=== PATIENT | male | born 1975 | race Hispanic/Latino ===

== ENCOUNTER 2020-02-11 20:21 | Inpatient (IN) | payer OTHER ==
[~2020-02-11] VITALS: Ht 167.6 cm; Wt 92.5 kg
[2020-02-11] MEDS ORDERED: ACETAMINOPHEN EXTRA STRENGTH 500 MG TABLET ONE (20:59)
[2020-02-11 21:29] LABS: ABG BASE EXCESS -3.4 mmol/L (-2.0-3.0); ABG HCO3 19.9 mmol/L (21.0-28.0); ABG OXYGEN SATURATION 93.7 % (95.0-99.0); ABG PCO2 31 mmHg (35-48)
[2020-02-11 21:32] LABS: BASOPHILS % (AUTO) 0.2 % (0.0-5.0); HEMATOCRIT 43.5 % (42-54); LYMPHOCYTES % (AUTO) 19.1 % (21.0-51.0); MEAN CORPUSCULAR HEMOGLOBIN 31.4 pg (27.0-33.0); MEAN CORPUSCULAR HGB CONC 34.9 g/dL (32.0-36.0); MEAN CORPUSCULAR VOLUME 89.9 fL (79-99); MONOCYTES % (AUTO) 11.2 % (3.0-13.0); NEUTROPHILS % (AUTO) 68.5 % (40.0-77.0); PLATELET COUNT (AUTO) 180 K/uL (130-400); RED BLOOD CELL COUNT(AUTO) 4.84 MIL/uL (4.50-6.20); RED CELL DISTRIBUTION WIDTH 12.6 % (11.0-15.5); WHITE BLOOD COUNT (AUTO) 5.2 K/uL (4.8-10.8)
[2020-02-11 21:39] LABS: INR 0.92 (0.85-1.15); PARTIAL THROMBOPLASTIN TIME 32.5 SEC (26.3-35.5)
[2020-02-11 21:42] LABS: CREATININE 1.2 mg/dL (0.5-1.5); POTASSIUM 3.8 mmol/L (3.5-5.1)
[2020-02-11 21:48] LABS: ALBUMIN 3.6 g/dL (3.5-5.0); BILIRUBIN,TOTAL 0.5 mg/dL (0.2-1.0); TOTAL PROTEIN, SERUM 8.2 g/dL (6.0-8.3)
[2020-02-11 21:56] LABS: B-TYPE NATRIURETIC PEPTIDE < 5 pg/mL (0-100)
[2020-02-11] MEDS ORDERED: CEFTRIAXONE SODIUM 1 GM ONE (22:00)
[2020-02-11] MEDS ORDERED: AZITHROMYCIN 500MG+NS 250ML 250 ML IV ONE (22:00)
[2020-02-11] MEDS ORDERED: IBUPROFEN 600 MG TABLET ONE (22:01)
[2020-02-11] MEDS: SODIUM CHLORIDE 0.9% 1000ML 1,000 ML IV SCH (22:38)
[2020-02-11] MEDS: CEFTRIAXONE SODIUM 1 GM IV SCH (22:45)
[2020-02-11] MEDS ORDERED: LACTULOSE 20 GM/30 ML UDCUP PO PRN (22:45)
[2020-02-11] MEDS ORDERED: ERGOCALCIFEROL (VITAMIN D2) 50,000 UNIT CAPSULE PO ONE (22:45)
[2020-02-11] MEDS ORDERED: ONDANSETRON HCL 4 MG/2 ML VIAL IV PRN (22:45)
[2020-02-11] MEDS ORDERED: POTASSIUM CHLORIDE 10% ELIXIR 20 MEQ/15 ML UDCUP PO PRN (22:45)
[2020-02-11] MEDS ORDERED: BENZONATATE 100 MG CAPSULE PO PRN (22:45)
[2020-02-11] MEDS: AZITHROMYCIN 500MG+NS 250ML 250 ML IV SCH (22:45)
[2020-02-11] MEDS ORDERED: POTASSIUM CHLORIDE 20 MEQ ERTAB PO PRN (22:45)
[2020-02-11] MEDS ORDERED: LIDOCAINE HCL-MPF 1% 2ML VIAL IV PRN (22:45)
[2020-02-11] MEDS ORDERED: POTASSIUM CHLORIDE 20MEQ/100ML 100 ML IV PRN (22:45)
[2020-02-11] MEDS ORDERED: HYDRALAZINE HCL 20 MG/ML VIAL IV PRN (23:00)
[2020-02-11] MEDS ORDERED: DEXAMETHASONE SOD PHOSPHATE 10MG/ML 1ML VIAL ONE (23:13)
[2020-02-11 23:30] LABS: APPEARANCE,URINE Clear (CLEAR); BILIRUBIN,URINE Negative (NEGATIVE); COLOR,URINE Yellow (YELLOW); GLUCOSE, URINE (UA) >=1000 mg/dL (NEGATIVE); KETONES,URINE 40 mg/dL (NEGATIVE); LEUKOCYTE ESTERASE ,URINE Negative (NEGATIVE); NITRATE,URINE Negative (NEGATIVE); OCCULT BLOOD,URINE Negative (NEGATIVE); PROTEIN,URINE POS 2+ mg/dL (NEGATIVE)
[2020-02-11 23:55] LABS: BACTERIA,URINE None Seen /HPF (None Seen); RBC,URINE None Seen /HPF (0-1); SQUAMOUS EPITHELIAL CELL,UR Rare /HPF (0-2); WBC,URINE None Seen /HPF (0-1); YEAST,URINE BUDDING None Seen /HPF (None Seen)
[2020-02-12 04:38] LABS: ALANINE AMINOTRANSFERASE 18 U/L (12-78); ALBUMIN 3.1 g/dL (3.5-5.0); ASPARTATE AMINOTRANSFERASE 27 U/L (10-37); BILIRUBIN,TOTAL 0.4 mg/dL (0.2-1.0); CARBON DIOXIDE 21 mmol/L (21-32); CHLORIDE 101 mmol/L (101-111); CREATININE 1.1 mg/dL (0.5-1.5); GLOMERULAR FILTR. RATE CALC 78 mL/min (>60); GLUCOSE,RANDOM 267 mg/dL (70-105); LACTATE DEHYDROGENASE 225 U/L (81-234); POTASSIUM 4.7 mmol/L (3.5-5.1); SODIUM SERUM 134 mmol/L (136-145); TOTAL PROTEIN, SERUM 7.3 g/dL (6.0-8.3); UREA NITROGEN, BLOOD 19 mg/dL (7-18)
[2020-02-12 06:03] LABS: BASOPHILS % (AUTO) 0.2 % (0.0-5.0); HEMATOCRIT 40.2 % (42-54); LYMPHOCYTES % (AUTO) 15.5 % (21.0-51.0); MEAN CORPUSCULAR HEMOGLOBIN 31.2 pg (27.0-33.0); MEAN CORPUSCULAR HGB CONC 33.6 g/dL (32.0-36.0); MEAN CORPUSCULAR VOLUME 92.8 fL (79-99); MONOCYTES % (AUTO) 3.8 % (3.0-13.0); NEUTROPHILS % (AUTO) 79.2 % (40.0-77.0); PLATELET COUNT (AUTO) 160 K/uL (130-400); RED BLOOD CELL COUNT(AUTO) 4.33 MIL/uL (4.50-6.20); RED CELL DISTRIBUTION WIDTH 12.6 % (11.0-15.5); WHITE BLOOD COUNT (AUTO) 4.5 K/uL (4.8-10.8)
[2020-02-12] MEDS: INSULIN HUMULIN R 100 UNIT/ML 3ML SQ SCH ×4 (07:30→20:32)
[2020-02-12] MEDS ORDERED: DEXAMETHASONE SOD PHOSPHATE 10MG/ML 1ML VIAL ONE (07:56)
[2020-02-12] MEDS ORDERED: ZINC SULFATE 220 CAPSULE ONE (07:57)
[2020-02-12] MEDS ORDERED: HEPARIN SODIUM 5000UNIT/ML 1ML VIAL ONE (07:57)
[2020-02-12] MEDS ORDERED: ASCORBIC ACID 500 MG TAB ONE (07:57)
[2020-02-12] MEDS ORDERED: FAMOTIDINE 20MG TAB 20 MG TAB ONE (07:57)
[2020-02-12] MEDS: SODIUM CHLORIDE 0.9% 1000ML 1,000 ML IV SCH ×2 (08:38→21:06)
[2020-02-12] MEDS ORDERED: INSULIN HUMULIN R 100 UNIT/ML 3ML ONE ×2 (08:57→17:23)
[2020-02-12] MEDS: ASCORBIC ACID 500 MG TAB PO SCH (09:00)
[2020-02-12] MEDS: FAMOTIDINE 20MG TAB 20 MG TAB PO SCH ×2 (09:00→21:05)
[2020-02-12] MEDS: HEPARIN SODIUM 5000UNIT/ML 1ML VIAL SQ SCH ×3 (09:00→21:05)
[2020-02-12] MEDS: ZINC SULFATE 220 CAPSULE PO SCH (09:00)
[2020-02-12] MEDS: DEXAMETHASONE 4 MG TAB PO SCH (09:00)
--- NOTE | 2020-02-12 15:00 | NUR ---
JOSEPHINE NOTE/IA UNABLE TO MEET WITH PATIENT IN ROOM, NEXT OF KIN CALLED, GIORGI AVILA. PER SPOUSE, PATIENT LIVES WITH HER AND CHILDREN, REQUIRES SOME ASSISTANCE WITH ADLS, DISABLED, HAS USE OF WALKER, AND [facility] [place] AND FEELS SAFE FOR PATIENT TO RETURN HOME ONCE DISCHARGED. Addendum: 02/13/20 at 1017 by KIMBERLY RAYGOZA RN CM Amended: Links added.
[2020-02-12 18:39] VITALS: BP 133/81
[2020-02-12 19:35] VITALS: BP 123/75
--- NOTE | 2020-02-12 19:55 | NUR ---
contact and spoke with vincent charged nurse on 4th floor, explained to her pt didnt got his tray. she said am i going to the kitchen and cook for the pt, explained to her you are the charged nurse and just letting you know pt gaurang received her tray, told her no need to be philosophical, she is gonna look for food.
[2020-02-12] MEDS: CEFTRIAXONE SODIUM 1 GM IV SCH (21:50)
[2020-02-12] MEDS: AZITHROMYCIN 500MG+NS 250ML 250 ML IV SCH (21:50)
--- NOTE | 2020-02-13 00:26 | NUR ---
contact and spoke with alexis jacques, pt requesting something for sleep ordered trazadone 25 mg hs prn for insomnia, torb and confirmed.
[2020-02-13] MEDS ORDERED: TRAZODONE HCL 50 MG TAB PO SCH (00:30)
[2020-02-13] MEDS ORDERED: TRAZODONE HCL 50 MG TAB ONE (00:32)
[2020-02-13 00:36] VITALS: BP 125/90
[2020-02-13 03:49] VITALS: BP 90/56
[2020-02-13] MEDS: ACETAMINOPHEN 325 MG TAB PO PRN ×2 (04:41→20:37)
[2020-02-13] MEDS: GUAIFENESIN-DM 200/20 MG 10 ML PO PRN ×2 (04:41→20:38)
[2020-02-13] MEDS: SODIUM CHLORIDE 0.9% 1000ML 1,000 ML IV SCH ×3 (04:41→23:47)
[2020-02-13 05:04] LABS: BASOPHILS % (AUTO) 0.1 % (0.0-5.0); HEMATOCRIT 40.1 % (42-54); LYMPHOCYTES % (AUTO) 11.7 % (21.0-51.0); MEAN CORPUSCULAR HEMOGLOBIN 31.3 pg (27.0-33.0); MEAN CORPUSCULAR HGB CONC 34.7 g/dL (32.0-36.0); MEAN CORPUSCULAR VOLUME 90.3 fL (79-99); NEUTROPHILS % (AUTO) 80.5 % (40.0-77.0); PLATELET COUNT (AUTO) 195 K/uL (130-400); RED BLOOD CELL COUNT(AUTO) 4.44 MIL/uL (4.50-6.20); RED CELL DISTRIBUTION WIDTH 12.7 % (11.0-15.5)
[2020-02-13 05:47] LABS: BILIRUBIN,TOTAL 0.4 mg/dL (0.2-1.0); CREATININE 0.9 mg/dL (0.5-1.5); CRP QUANTITATIVE 38.4 mg/L (0.00-9.0); TOTAL PROTEIN, SERUM 7.2 g/dL (6.0-8.3)
[2020-02-13] MEDS: INSULIN HUMULIN R 100 UNIT/ML 3ML SQ SCH ×4 (06:04→20:49)
[2020-02-13 08:30] VITALS: BP 113/73
[2020-02-13] MEDS: DEXAMETHASONE 4 MG TAB PO SCH (09:07)
[2020-02-13] MEDS: ASCORBIC ACID 500 MG TAB PO SCH (09:08)
[2020-02-13] MEDS: ZINC SULFATE 220 CAPSULE PO SCH (09:08)
[2020-02-13] MEDS: FAMOTIDINE 20MG TAB 20 MG TAB PO SCH ×2 (09:08→20:36)
[2020-02-13] MEDS: HEPARIN SODIUM 5000UNIT/ML 1ML VIAL SQ SCH ×3 (09:09→20:40)
[2020-02-13 12:00] VITALS: BP 135/67
[2020-02-13] MEDS ORDERED: DEXA6TAB PO (14:56)
[2020-02-13 16:23] VITALS: BP 128/80
[2020-02-13 19:35] VITALS: BP 131/84
[2020-02-13] MEDS: CEFTRIAXONE SODIUM 1 GM IV SCH (23:46)
[2020-02-13] MEDS: AZITHROMYCIN 500MG+NS 250ML 250 ML IV SCH (23:47)
[2020-02-14 00:02] VITALS: BP 128/80
[2020-02-14 04:05] VITALS: BP 131/79
[2020-02-14 04:47] LABS: BASOPHILS % (AUTO) 0.1 % (0.0-5.0); HEMATOCRIT 40.8 % (42-54); LYMPHOCYTES % (AUTO) 8.5 % (21.0-51.0); MEAN CORPUSCULAR HEMOGLOBIN 30.6 pg (27.0-33.0); MEAN CORPUSCULAR HGB CONC 34.3 g/dL (32.0-36.0); MEAN CORPUSCULAR VOLUME 89.3 fL (79-99); MONOCYTES % (AUTO) 4.5 % (3.0-13.0); NEUTROPHILS % (AUTO) 85.8 % (40.0-77.0); PLATELET COUNT (AUTO) 230 K/uL (130-400); RED BLOOD CELL COUNT(AUTO) 4.57 MIL/uL (4.50-6.20); RED CELL DISTRIBUTION WIDTH 12.2 % (11.0-15.5); WHITE BLOOD COUNT (AUTO) 10.1 K/uL (4.8-10.8)
[2020-02-14 05:04] LABS: ALANINE AMINOTRANSFERASE 17 U/L (12-78); ALBUMIN 3.2 g/dL (3.5-5.0); ASPARTATE AMINOTRANSFERASE 16 U/L (10-37); BILIRUBIN,TOTAL 0.4 mg/dL (0.2-1.0); CARBON DIOXIDE 19 mmol/L (21-32); CHLORIDE 99 mmol/L (101-111); CREATININE 0.9 mg/dL (0.5-1.5); GLOMERULAR FILTR. RATE CALC 98 mL/min (>60); GLUCOSE,RANDOM 190 mg/dL (70-105); LACTATE DEHYDROGENASE 214 U/L (81-234); POTASSIUM 3.8 mmol/L (3.5-5.1); SODIUM SERUM 135 mmol/L (136-145); TOTAL PROTEIN, SERUM 7.8 g/dL (6.0-8.3); UREA NITROGEN, BLOOD 21 mg/dL (7-18)
[2020-02-14] MEDS: INSULIN HUMULIN R 100 UNIT/ML 3ML SQ SCH (06:15)
[2020-02-14] MEDS: GUAIFENESIN-DM 200/20 MG 10 ML PO PRN (06:17)
[2020-02-14] MEDS: ACETAMINOPHEN 325 MG TAB PO PRN (06:18)
--- NOTE | 2020-02-14 06:35 | NUR ---
received report from iggy parker nurse, assumed care, shift assessment done, 24 cc done, pt anxious , new order ativan po 0.5 mg hs prn, timed medication given, pt early this morning very anxious, new order by chadd schmitt np ativan iv 0.5mg onetime, dulocolax supp hs prn for consitipation, lactulose bid , spoke with pt daughter, explained to her of the event, pt very anxous , safety maintained.sd
--- NOTE | 2020-02-14 06:39 | NUR ---
received report from iggy parker nurse, [facility] care, shft assessment done, 24 cc done, timed medication givne pre and post pain assessment done, safety maintained.
[2020-02-14 07:00] VITALS: BP 110/66
[2020-02-14] MEDS: ZINC SULFATE 220 CAPSULE PO SCH (09:05)
[2020-02-14] MEDS: ASCORBIC ACID 500 MG TAB PO SCH (09:05)
[2020-02-14] MEDS: DEXAMETHASONE 4 MG TAB PO SCH (09:06)
[2020-02-14] MEDS: FAMOTIDINE 20MG TAB 20 MG TAB PO SCH (09:06)
[2020-02-14] MEDS: HEPARIN SODIUM 5000UNIT/ML 1ML VIAL SQ SCH (09:07)
[2020-02-14] MEDS: SODIUM CHLORIDE 0.9% 1000ML 1,000 ML IV SCH (09:13)
[2020-02-14 11:30] VITALS: BP 128/78
--- NOTE | 2020-02-14 11:58 | NUR ---
Discharge instructions given to and explained to patient and via facetime. Pt and verbalized understanding. Iv removed.
== END 2020-02-14 12:30 | disposition home or self-care (01) | DRG 177 ==
LOC: EDH 20:21 → EDHIP 22:17 → 4AH 02-12 18:25
PROVIDERS: ADMIT Internal Medicine; ATTEND Internal Medicine
DX: U07.1 COVID-19 (principal); J12.89 Other viral pneumonia; J96.91 Respiratory failure, unspecified with hypoxia; E11.9 Type 2 diabetes mellitus without complications; I10 Essential (primary) hypertension; E78.5 Hyperlipidemia, unspecified; E66.9 Obesity, unspecified; Z79.01 Long term (current) use of anticoagulants; Z82.49 Family history of ischemic heart disease and other diseases of the circulatory system; Z83.3 Family history of diabetes mellitus; Z68.32 Body mass index [BMI] 32.0-32.9, adult
CPT/HCPCS: 36415; 36600; 71045; 80053; 81001; 82728; 82803; 82948; 83605; 83615; 83690; 83880; 84145; 84484; 85025; 85378; 85610; 85730; 86140; 86850; 86900; 86901; 87040; 87426; 87486; 87581; 87633; 87798; 87880; 93005; 94760; G0378; J0456; J0696; J1100; J1644; J1815; J7030; J8540

== ENCOUNTER 2024-05-31 11:12 | Emergency (ER) | payer MEDICARE ==
[~2024-05-31] VITALS: Ht 167.6 cm; Wt 84.4 kg
[~2024-05-31 11:12] MED LIST: DEXA6TAB PO
--- NOTE | 2024-05-31 11:22 | EKG ---
[facility] Test Date: 2024-05-31 Test Time: 11:21:19 Pat Name: MARCIAL AVILA Department: ED Room: Gender: M [employer] Helper: [id number] : 1975 Requested By: EZEQUIEL BAEZ Order Number: [id number] Reading MD: Eve Argueta Measurements Intervals [place] Rate: 90 P: 8 MD: 172 QRS: 15 QRSD: 85 T: 39 QT: 362 QTc: 444 Interpretive Statements Sinus rhythm Compared to ECG 02/11/2020 20:52:20 Sinus tachycardia no longer present Myocardial infarct finding no longer present Electronically Signed On 05-31-2024 13:33:58 OFFICE ASSOCIATE by Eve Argueta Please click the below link to view image of tracing.
--- NOTE | 2024-05-31 11:42 | HMCIMG ---
US ABDOMINAL RUQ\E\LTD HISTORY: Adominal Pain COMPARISON: None FINDINGS: There is mild hepatic steatosis. There are no focal liver masses. The liver is not enlarged.There is a normal-appearing gallbladder. Common duct is normal. Right kidney is normal with no evidence of mass, hydronephrosis or stone.The pancreas appears normal as well. IMPRESSION: 1. Mild hepatic steatosis. 2. No acute finding.
[2024-05-31] MEDS ORDERED: morPHINE 4 MG SYG IVP ONE (12:00)
[2024-05-31 12:29] LABS: BASOPHILS # (AUTO) 0.04 K/uL (0.00-0.20); BASOPHILS % (AUTO) 0.6 % (0.0-5.0); EOSINOPHILS # (AUTO) 0.14 K/uL (0.00-0.70); HEMATOCRIT 45.2 % (42-54); IMMATURE GRANULOCYTE ABSOLUTE 0.07 K/uL (0-1); LYMPHOCYTES # (AUTO) 1.2 K/uL (1.0-4.8); LYMPHOCYTES % (AUTO) 16.9 % (21.0-51.0); MEAN CORPUSCULAR HEMOGLOBIN 32.5 pg (27.0-33.0); MEAN CORPUSCULAR HGB CONC 33.6 g/dL (32.0-36.0); MEAN CORPUSCULAR VOLUME 96.8 fL (79-99); MONOCYTES # (AUTO) 0.5 K/uL (0.1-1.0); MONOCYTES % (AUTO) 6.9 % (3.0-13.0); NEUTROPHILS # (AUTO) 5.2 K/uL (1.8-7.7); NEUTROPHILS % (AUTO) 72.6 % (40.0-77.0); PLATELET COUNT (AUTO) 203 K/uL (130-400); RED BLOOD CELL COUNT(AUTO) 4.67 MIL/uL (4.50-6.20); RED CELL DISTRIBUTION WIDTH 12.3 % (11.0-15.5); WHITE BLOOD COUNT (AUTO) 7.1 K/uL (4.8-10.8)
[2024-05-31 12:46] LABS: CREATININE 0.8 mg/dL (0.5-1.3); POTASSIUM 4.2 mmol/L (3.5-5.1)
[2024-05-31 12:57] LABS: ALBUMIN 3.7 g/dL (3.5-5.0); BILIRUBIN,DIRECT 0.1 mg/dL (0.0-0.3); BILIRUBIN,TOTAL 0.6 mg/dL (0.2-1.0); TOTAL PROTEIN, SERUM 6.6 g/dL (6.0-8.3)
[2024-05-31] MEDS ORDERED: IOHEXOL 350 MG/ML 100ML INFUS..BTL IV ONE (13:41)
--- NOTE | 2024-05-31 13:59 | HMCIMG ---
CT ABDOMEN/PELVIS W/CONTRAST REASON: upper abd pain COMPARISON: None. TECHNIQUE: Images are obtained from lung bases to the symphysis pubis following IV contrast, 100 cc Omnipaque 350. FINDINGS: Lung bases are clear. There are no focal liver lesions. There are normal-appearing kidneys.. Spleen and pancreas appear unremarkable. The gallbladder appears normal as well. Bowel loops appear unremarkable. This includes normal appearance of the appendix There is no evidence of free fluid or intraperitoneal air. There are no focal fluid collections. Aorta and retroperitoneum appear normal as do pelvic soft tissue structures. The anterior abdominal wall is intact. There are surgical changes lower lumbar spine. Bones appear otherwise unremarkable. IMPRESSION: 1. Negative postcontrast CT abdomen and pelvis. CT was performed with one or more following dose reduction techniques: automated exposure control, adjustment of the mA and kv according to patient's size, or use of a iterative reconstruction technique.
[2024-05-31] MEDS: ondanSETRON 4MG INJ IVP ONE (14:05)
[2024-05-31] MEDS: ketOROlac 15MG/ML VIAL (15MG/ML) IV ONE (14:06)
[2024-05-31] MEDS: 0.9%NACL 1000ML 1,000 ML IV ONE (14:06)
[2024-05-31] MEDS: morPHINE 4 MG SYG IVP ONE (14:07)
[2024-05-31] MEDS ORDERED: FAMO20TA8 PO (14:26)
[2024-05-31] MEDS ORDERED: MAG-55 PO (14:26)
--- NOTE | 2024-05-31 14:28 | ERN ---
General Chief Complaint: Abdominal Pain Stated Complaint: RUQ ABOMINAL PAIN, VOMITING Time Seen by MD: 11:12 History of Present Illness Initial Comments 48-year-old male who presents for epigastric pain that radiates to his chest. Began earlier today. Severe pain. He reports he has had this before. He is unknown the trigger. He was currently taking acid reflux medication. He does report some nausea with vomiting. No diarrhea. No fevers. No cardiac type chest pain. No respiratory symptoms. Allergies: Coded Allergies: No Known Allergies (Unverified Allergy, Unknown, 03/11/19) Home Meds Active Scripts Dexamethasone (Dexamethasone) 6 Mg Tablet, 6 MG PO DAILY for 8 Days, #8 TAB Prov:KEE DONOVANISIDRO Espinoza SPICE BLENDER 02/13/20 Past Medical History Past Medical History: Anxiety, CHF, Depression, Diabetes-Type II, High Choles terol Past Surgical History: CABG, Other Surgical History Other: BACK , RIGHT ANKLE ROS Dictation CONSTITUTIONAL: No chills, no fever, no weakness, no diaphoresis, no malaise. HEAD/FACE: No signs of trauma. EENT: No eye pain, no blurred vision, no tearing, no double vision, no ear pain, no ear discharge, no nose pain, no nasal congestion, no throat pain, no throat swelling, no mouth pain. RESPIRATORY: No cough, no orthopnea, no SOB, no stridor, no wheezing. CARDIOVASCULAR: No chest pain, no edema, no palpitations, no syncope. GASTROINTESTINAL/ABDOMINAL: Epigastric pain vomiting GENITOURINARY: No abnormal discharge, no dysuria, no frequent urination, no hematuria. No complaints of pain in the genitals. MUSCULOSKELETAL: No back pain, no gout, no joint pain, no joint swelling, no muscle pain, no muscle stiffness, no neck pain. INTEGUMENTARY: No change in color, no change in hair/nails, no dryness, no lesion, no lumps, no rash. NEUROLOGICAL/PSYCH: No anxiety, not depressed, no emotional problem, no headache, no numbness, no pre-existing deficit, no history of seizures, no tremors, no weakness. HEMATOLOGIC/LYMPHATIC: Not anemic, no history of blood clots, no apparent bleeding, no bruising, glands not swollen. All Systems Negative, Except as Noted. Physical Exam Physical Exam Dictation VITAL SIGNS: Reviewed. GENERAL APPEARANCE: Alert, oriented x3, moderate distress due to pain. HEAD AND FACE: Non-traumatic. EYES: PERRL, pink conjunctivas, eyelid no trauma, anterior chamber clear. EARS: Pinnas intact and no signs of trauma or erythema. Ear canals clear and no discharge. TMs no erythema. NOSE: No discharge, no bleeding. OROPHARYNX: Mouth normal, teeth no caries, tongue pink. Pharynx clear, no erythema. Tonsils no exudates, no abscesses noted. Mucous membrane moist. NECK: Supple, non-tender, no thyromegaly, no masses, no JVD, no bruits. BREAST: Deferred. CHEST: No tenderness, no crepitus, no paradoxical movement, no retractions. LUNGS: Clear, well-ventilated, symmetric, no rales, no wheezing, no rhonchi, no stridor, good breath sounds bilaterally. HEART: Regular rate, regular rhythm, no murmur, no gallops. VASCULAR: No peripheral edema. ABDOMEN: Soft, positive bowel sounds, nondistended, no guarding, nontender, no rebound, no masses no hepatomegaly, no splenomegaly, no Alexandre's sign, no hernias. RECTAL: Deferred. GENITAL: Deferred. NEUROLOGICAL: Normal speech, gross motor function intact, gross sensory function intact. MUSCULOSKELETAL: Neck nontender, full range of motion, back nontender, full range of motion. EXTREMITIES: Nontender, full range of motion. SKIN: Color pink, dry, no turgor, no rash, no lacerations, no abrasions, no contusions. LYMPHATICS: Deferred. Results Laboratory and Microbiology Lab and Micro Result Laboratory Tests Test 05/31/24 11:55 White Blood Count 7.1 K/uL (4.8-10.8) Red Blood Count 4.67 MIL/uL (4.50-6.20) Hemoglobin 15.2 g/dL (14.0-18.0) Hematocrit 45.2 % (42-54) Mean Corpuscular Volume 96.8 fL (79-99) Mean Corpuscular Hemoglobin 32.5 pg (27.0-33.0) Mean Corpuscular Hemoglobin Concent 33.6 g/dL (32.0-36.0) Red Cell Distribution Width 12.3 % (11.0-15.5) Platelet Count 203 K/uL (130-400) Mean Platelet Volume 10.8 fL (7.5-10.5) H Immature Granulocyte % (Auto) 1.0 % (0-1) Neutrophils (%) (Auto) 72.6 % (40.0-77.0) Lymphocytes (%) (Auto) 16.9 % (21.0-51.0) L Monocytes (%) (Auto) 6.9 % (3.0-13.0) Eosinophils (%) (Auto) 2.0 % (0.0-8.0) Basophils (%) (Auto) 0.6 % (0.0-5.0) Neutrophils # (Auto) 5.2 K/uL (1.8-7.7) Lymphocytes # (Auto) 1.2 K/uL (1.0-4.8) Monocytes # (Auto) 0.5 K/uL (0.1-1.0) Eosinophils # (Auto) 0.14 K/uL (0.00-0.70) Basophils # (Auto) 0.04 K/uL (0.00-0.20) Absolute Immature Granulocyte (auto 0.07 K/uL (0-1) Nucleated Red Blood Cells 0.0 % (0.0-0.19) Sodium Level 142 mmol/L (136-145) Potassium Level 4.2 mmol/L (3.5-5.1) Chloride Level 106 mmol/L (101-111) Carbon Dioxide Level 26 mmol/L (21-32) Blood Urea Nitrogen 11 mg/dL (7-18) Creatinine 0.8 mg/dL (0.5-1.3) Glomerular Filtration Rate Calc 110 mL/min (>90) Random Glucose 227 mg/dL (70-105) H Total Calcium 8.8 mg/dL (8.5-10.1) Total Bilirubin 0.6 mg/dL (0.2-1.0) Direct Bilirubin 0.1 mg/dL (0.0-0.3) Aspartate Amino Transf (AST/SGOT) 18 U/L (10-37) Alanine Aminotransferase (ALT/SGPT) 26 U/L (12-78) Alkaline Phosphatase 99 U/L (50-136) Troponin I High Sensitivity 25 ng/L (4-75) Total Protein 6.6 g/dL (6.0-8.3) Albumin 3.7 g/dL (3.5-5.0) Lipase 84 U/L (16-77) H MDM CC: Epigastric pain radiating to the chest Historian: Patient Comorbidities: GERD Limitations by social determinants of health: None Differential diagnosis: Pancreatitis, biliary pathology, acid reflux, gastritis, GERD, cardiac disease, respiratory disease, other. Vital signs: Stable, remained stable in the ER EKG: NSR, rate of 90 normal axis good R progression intervals are stable. No STEMI. Independently interpreted by me. labs: No leukocytosis no anemia no shift no bands. Electrolytes stable, glucose mildly elevated, liver enzymes are all normal. Lipase normal. Troponin normal. The ultrasound of the gallbladder per my independent interpretation shows no gallstones pericholecystic fluids or signs cholecystitis. CT scan of the abdomen and pelvis with contrast per my independent interpretation shows no free air or surgical pathology. Patient received GI cocktail, IV fluids, IV morphine in the ER. Symptoms are consistent with gastritis / GERD. We will recommend continuing a PPI. We will add famotidine. We will add Maalox. We will recommend PCP follow up. REASON: upper abd pain ORDERING PHYSICIAN: EZEQUIEL BAEZ DO PROCEDURE: ABD PEL W - CT ABDOMEN/PELVIS W/CONTRAST CT ABDOMEN/PELVIS W/CONTRAST REASON: upper abd pain COMPARISON: None. TECHNIQUE: Images are obtained from lung bases to the symphysis pubis following IV contrast, 100 cc Omnipaque 350. FINDINGS: Lung bases are clear. There are no focal liver lesions. There are normal-appearing kidneys.. Spleen and pancreas appear unremarkable. The gallbladder appears normal as well. Bowel loops appear unremarkable. This includes normal appearance of the appendix There is no evidence of free fluid or intraperitoneal air. There are no focal fluid collections. Aorta and retroperitoneum appear normal as do pelvic soft tissue structures. The anterior abdominal wall is intact. There are surgical changes lower lumbar spine. Bones appear otherwise unremarkable. IMPRESSION: 1. Negative postcontrast CT abdomen and pelvis. REASON: Adominal Pain ORDERING PHYSICIAN: EZEQUIEL BAEZ DO PROCEDURE: ABDRUQLTD - US ABDOMINAL RUQ\LTD US ABDOMINAL RUQ\E\LTD HISTORY: Adominal Pain COMPARISON: None FINDINGS: There is mild hepatic steatosis. There are no focal liver masses. The liver is not enlarged.There is a normal-appearing gallbladder. Common duct is normal. Right kidney is normal with no evidence of mass, hydronephrosis or stone.The pancreas appears normal as well. IMPRESSION: 1. Mild hepatic steatosis. 2. No acute finding. ED Course Orders Procedure Category Date Status Time Cbc With Differential LAB 05/31/24 Complete 11:13 Urinalysis Profile LAB 05/31/24 In Process 11:13 Us Abdominal Ruq\Ltd US 05/31/24 Resulted 11:13 0.9%Nacl 1000ml (Ns PHA 05/31/24 Complete 1000ml) 11:30 Ketorolac PHA 05/31/24 Complete Tromethamine 15mg/Ml 11:30 Morphine 4mg Syg PHA 05/31/24 Complete (Morphine 4mg Syg) 11:30 Ondansetron 4mg Inj PHA 05/31/24 Complete (Zofran 4mg Inj) 11:30 Lipase LAB 05/31/24 Complete 11:13 Basic Metabolic Panel LAB 05/31/24 Complete 11:13 Hepatic Function Panel LAB 05/31/24 Complete 11:13 12 Lead Ekg Tracing- EKG 05/31/24 Resulted Technical 11:17 Ct Abdomen/Pelvis CT 05/31/24 Resulted W/Contrast 11:32 Morphine 4mg Syg PHA 05/31/24 Complete (Morphine 4mg Syg) 12:00 Troponin I High LAB 05/31/24 Complete Sensitivity 11:54 Iohexol (Omnipaque) PHA 05/31/24 Complete 13:41 Mag/Alum/Simeth 30ml PHA 05/31/24 In Process (Maalox Plus 30ml) 14:30 Famotidine 20mg Tab PHA 05/31/24 In Process (Pepcid 20mg Tab) 14:30 Dicyclomine Hcl PHA 05/31/24 In Process (Bentyl 10mg/5ml 14:30 Current Medications Medications (Trade) Dose Ordered Sig/Aryan Route PRN Reason Start Time Stop Time Status Last Admin Dose Admin Al Hydroxide/Mg Hydroxide (MAALox PLUS 30ML) 30 ml ONCE ONCE PO 05/31/24 14:30 05/31/24 14:31 Dicyclomine HCl (Bentyl 10mg/5ml Syrup) 10 mg ONCE ONCE PO 05/31/24 14:30 05/31/24 14:31 Famotidine (Pepcid 20mg Tab) 20 mg ONCE ONCE PO 05/31/24 14:30 05/31/24 14:31 Iohexol (Omnipaque) 35,000 mg STK-MED ONCE IV 05/31/24 13:41 05/31/24 13:41 DC Ketorolac Tromethamine (toRADol) 15 mg ONCE ONCE IV 05/31/24 11:30 05/31/24 11:31 DC 05/31/24 14:06 Morphine Sulfate (morPHINE 4MG SYG) 4 mg ONCE ONCE IVP 05/31/24 11:30 05/31/24 11:31 DC 05/31/24 14:07 Morphine Sulfate (morPHINE 4MG SYG) 4 mg ONCE ONCE IVP 05/31/24 12:00 05/31/24 12:01 DC Ondansetron HCl (zoFRAN 4MG INJ) 4 mg ONCE ONCE IVP 05/31/24 11:30 05/31/24 11:31 DC 05/31/24 14:05 Sodium Chloride 1,000 ml @ 0 mls/hr ONCE ONCE IV 05/31/24 11:30 05/31/24 11:31 DC 05/31/24 14:06 Vital Signs Date Time Temp Pulse Resp B/P (MAP) Pulse Ox O2 Delivery O2 Flow Rate FiO2 05/31/24 11:13 99.9 90 20 129/77 98 Room Air 0 DX & DISP Disposition: Discharge Departure Impression: Primary Impression: Gastritis Condition: Stable Scripts Mag Hydrox/Al Hydrox/Simeth (Maalox Maximum Strength Susp) 400 Mg-400 Mg-40 Mg/5 Ml Oral.susp 20 ML PO Q6H for indegestion for 5 Days, #355 ML 0 Refills Prov: EZEQUIEL BAEZ DO 05/31/24 Famotidine (Famotidine) 20 Mg Tablet 1 TAB PO BID for 30 Days, #60 TAB 0 Refills Prov: EZEQUIEL BAEZ DO 05/31/24 Additional Instructions: Your symptoms are consistent with gastritis with indigestion. Your vital signs have been stable here in the ER. Your lab work (CBC, BMP, liver function enzymes, lipase, troponin) is stable. The ultrasound of the your gallbladder and liver show a mildly fatty liver but otherwise unremarkable. This is unlikely to be causing your symptoms. The CT scan of your abdomen and pelvis is normal. Continue with your home medications. I have added a 2nd medication called famotidine. Take this as prescribed. You can also use if Maalox maximum strength as needed for symptomatic relief. Avoid NSAIDs such as ibuprofen or aspirin. This can worsen gastritis. Use Tylenol based medications as needed. Modify your diet. Eat bland, soft foods. Avoid spicy, acidic, anxiety feeds. Eats smaller, more frequent meals rather than few large meals throughout the day. State hydrated. Avoid smoking. Avoid heavy meals late at night. Elevate the head of your bed at night to reduce reflux. Please follow up with your primary doctor in 1-2 weeks for re-evaluation. Return to the emergency department as needed. Referrals: ADELINE BUCHANAN MD (PCP) EZEQUIEL BAEZ DO May 31, 2024 14:28
[2024-05-31 14:29] LABS: APPEARANCE,URINE CLEAR (CLEAR); BILIRUBIN,URINE NEGATIVE (NEGATIVE); COLOR,URINE COLORLESS (YELLOW); GLUCOSE, URINE (UA) >=1000 mg/dL (NEGATIVE); KETONES,URINE 20 mg/dL (NEGATIVE); LEUKOCYTE ESTERASE ,URINE NEGATIVE Leu/uL (NEGATIVE); NITRATE,URINE NEGATIVE (NEGATIVE); OCCULT BLOOD,URINE NEGATIVE (NEGATIVE); PH,URINE 5.5 (5.0-8.0); PROTEIN,URINE 10 mg/dL (NEGATIVE); UROBILINOGEN,URINE 0.2 mg/dL (0.2-1.0)
[2024-05-31 14:30] VITALS: BP 118/67; PULSE 98; RESP 19; TEMP 98.2; O2SAT 99
[2024-05-31 14:30] LABS: ADD UA MICROSCOPIC YES; RBC,URINE 0-1 /HPF (0-1); SQUAMOUS EPITHELIAL CELL,UR RARE /HPF (0-2)
[2024-05-31] MEDS ORDERED: DICYCLOMINE HCL 10 MG/5 ML ML PO ONE (14:30)
[2024-05-31] MEDS ORDERED: MAG/ALUM/SIMETH 30 ML UDCUP PO ONE (14:30)
[2024-05-31] MEDS ORDERED: FAMOTIDINE 20MG TAB PO ONE (14:30)
== END 2024-05-31 15:38 | disposition home or self-care (01) ==
LOC: EDH 11:12
DX: K29.70 Gastritis, unspecified, without bleeding (principal); I11.0 Hypertensive heart disease with heart failure; I50.9 Heart failure, unspecified; E11.9 Type 2 diabetes mellitus without complications; E78.00 Pure hypercholesterolemia, unspecified; I21.9 Acute myocardial infarction, unspecified; Z79.52 Long term (current) use of systemic steroids; Z95.1 Presence of aortocoronary bypass graft
CPT/HCPCS: 99285; 74177; 96374; 76705; 96375; 96361; 80076; 84484; 80048; 83690; 85025; 81001; 36415; 93005; J7030; J2405; J2270; J1885; Q9967